=== PATIENT | male | born 1970 | race Caucasian/White ===

== ENCOUNTER 2017-03-13 15:26 | Emergency (ER) | payer MEDICARE, OTHER ==
[2017-03-13 15:37] VITALS: BP 99/59
[2017-03-13] MEDS ORDERED: KETOROLAC TROMETHAMINE 60 MG/2 ML VIAL IM ONE ×2 (15:52→15:59)
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
== END 2017-03-13 16:15 | disposition left against medical advice (07) ==
LOC: ER 15:26
DX: S72.92XD Unspecified fracture of left femur, subsequent encounter for closed fracture with routine healing (principal); F17.200 Nicotine dependence, unspecified, uncomplicated; V29.9XXD Motorcycle rider (driver) (passenger) injured in unspecified traffic accident, subsequent encounter